=== PATIENT | female | born 1995 | race American Indian/Alaskan Native ===

== ENCOUNTER 2019-04-22 14:31 | Inpatient (IN) | payer OTHER ==
[2019-04-22] MEDS ORDERED: LACTATED RINGERS 1,000 ML ONE (15:14)
[2019-04-22] MEDS ORDERED: XYLOCAINE 2% INFILTRATI ONE (16:35)
[2019-04-22] MEDS ORDERED: BRETHINE SUB-Q PRN (16:35)
[2019-04-22] MEDS ORDERED: TYLENOL PO ONE (16:39)
--- NOTE | 2019-04-22 16:50 | History and Physical Report ---
History of Present Illness Date of examination: 04/22/19 Date of admission: 04/22/2019 Chief complaint: Contractions History of present illness: 23 year old female at 39 weeks, 4 days gestation presents to labor and delivery complaining of contractions since 09:30 today. Patient denies vaginal bleeding or leaking of fluid. Patient reports fetus is moving actively. Patient received care at [facility] and was able to look up records although hard copy is not available. LMP 07/19/2018. EDC 04/25/19 (based on LMP and confirmed by 12 week US). significant for the following: Multiple sclerosis (co-managed with [facility] and neuro), transfer-in to from Dr. Monteiro. labs are as follows: A-, antibody screen negative, rubella immune, RPR nonreactive, hepatitis B surface antigen negative, HIV negative, quad screen negative, chlamydia negative, gonorrhea negative, GBS negative, hemoglobin electrophoresis normal, unable to access 1 hour sugar test result at this time. Patient reports a latex allergy. Past History Past Medical History: other (multiple scerosis) Past Surgical History: no surgical history [facility] History: denies: abnormal PAP smear, chlamydia, gonorrhea, hepatitis B, hepatitis C, herpes, HIV, syphilis, trichomonas Social history: single, lives with family, full code. denies: smoking, alcohol abuse, prescription drug abuse, IV drug use - Obstetrical History Expected Date of Delivery: 04/25/19 Actual Gestation: 39 Week(s) 4 Day(s) : 1 Hx # Term Pregnancies: 0 Number of Pregnancies: 0 Spontaneous Abortions: 1 Induced : 0 Number of Living Children: 0 Medications and Allergies Allergies Allergy/AdvReac Type Severity Reaction Status Date / Time No Known Allergies Allergy Unverified 04/22/19 14:46 Active Meds: Active Medications Ephedrine Sulfate (Ephedrine Sulfate) 10 mg IV Q2M PRN PRN Reason: Hypotension Oxytocin/Sodium Chloride (Pitocin/Ns 20 Unit/1000ml Drip) 20 units in 1,000 mls @ 125 mls/hr IV DIRECT BASSAM Lactated Ringer's (Lactated Ringers) 1,000 mls @ 125 mls/hr IV DIRECT BASSAM Terbutaline Sulfate (Brethine) 0.25 mg SUB-Q ONCE PRN PRN Reason: Hyperstimulation/Hypertonicity Review of Systems All systems: negative (contractions) - Vital Signs Vital signs: Vital Signs Pulse BP 75 117/57 04/22/19 14:45 04/22/19 14:45 Temp Pulse Resp BP Pulse Ox 99.0 F 75 117/57 04/22/19 16:36 04/22/19 14:45 04/22/19 14:45 - Physical Exam Cardiovascular: Regular rate, Normal S1, Normal S2 Lungs: Positive: Clear to auscultation Abdomen: Positive: normal appearance, soft. Negative: distention, tenderness, guarding, rigidity Genitourinary (Female): Positive: normal external genitalia, normal perenium. Negative: perineal/vulvar lesions Vagina: Positive: normal moisture Uterus: Positive: enlarged (size appropriate for dates) Anus/Rectum: Positive: normal perianal skin Extremities: Positive: normal. Negative: tenderness, edema - Obstetrical FHR: category 2 FHR comments: 1 variable FHR deceleration with gradual return to baseline, mild tachycardia Cervical Dilatation: 2 Cervical Effacement Percentage: 95 station: 0 Uterine Contraction Pattern: Regular Uterine Contraction Intensity: Moderate Results All other labs normal. Assessment and Plan A: at 39 weeks, 4 days gestation. Early labor. Category 2 heart rate tracing (variable deceleration and mild tachycardia). GBS negative. Multiple Sclerosis. P: Admit. Continuous EFM. PO Tylenol. IV hydration. Oxygen per face mask. Lateral positioning. Consulted with Dr. Richter re: heart rate tracing and interventions taken. Asked Dr. Richter to come in to expedite delivery due to heart rate tracing (category 2, tachycardia and variable FHR deceleration). C/S orders put in the event tachycardia does not resolve.
[2019-04-22] MEDS ORDERED: PITOCin/NS 20 UNIT/1000ML DRIP 20 UNITS/1,000 ML BAG IV SCH ×2 (17:00→18:00)
[2019-04-22] MEDS ORDERED: LACTATED RINGERS 1,000 ML IV ONE (17:00)
[2019-04-22] MEDS ORDERED: LACTATED RINGERS 1,000 ML IV SCH ×2 (17:00→18:00)
[2019-04-22 17:25] LABS: Hematocrit 31.6 % (30.3-42.9); Mean Corpuscular HGB Conc 35 % (30-34); Mean Corpuscular Volume 93 fl (79-97); Platelet Count 197 K/mm3 (140-440); Red Cell Distribution Width 15.2 % (13.2-15.2)
[2019-04-22] MEDS ORDERED: GENTAMICIN 100 MG in NACL 0.9% 100 ML IV SCH (17:30)
--- NOTE | 2019-04-22 17:32 | Anesthesia Consultation ---
Anesthesia Consult and Med Hx Date of service: 04/22/19 - Airway Anesthetic Teeth Evaluation: Good ROM Head & Neck: Adequate Mental/Hyoid Distance: Adequate Mallampati Class: Class II Intubation Access Assessment: Probably Good - Pulmonary Exam CTA: Yes - Cardiac Exam Cardiac Exam: RRR - Pre-Operative Health Status ASA Pre-Surgery Classification: ASA2 Proposed Anesthetic Plan: Spinal - Pulmonary Hx Smoking: No Hx Asthma: No Hx Respiratory Symptoms: No SOB: No COPD: No Home Oxygen Therapy: No Hx Pneumonia: No Hx Sleep Apnea: No - Cardiovascular System Hx Hypertension: No Hx Coronary Artery Disease: No Hx Heart Attack/AMI: No Hx Angina: No Hx Percutaneous Transluminal Coronary Angioplasty (PTCA): No Hx Cardia Arrhythmia: No Hx Pacemaker: No Hx Internal Defibrillator: No Hx Valvular Heart Disease: No Hx Heart Murmur: No Hx Peripheral Vascular Disease: No - Central Nervous System Hx Neuromuscular Disorder: Yes (Multiple Sclerosis) Hx Seizures: No CVA: No Hx Back Pain: No Hx Psychiatric Problems: No - Gastrointestinal Hx Ulcer: No Hx Gastroesophageal Reflux Disease: Yes - Endocrine Hx Renal Disease: No Hx End Stage Renal Disease: No Hx Cirrhosis: No Hx Liver Disease: No Hx Insulin Dependent Diabetes: No Hx Non-Insulin Dependent Diabetes: No Hx Thyroid Disease: No Hx Hypothyroidism: No Hx Hyperthyroidism: No - Hematic Hx Anemia: No Hx Sickle Cell Disease: No - Other Systems Hx Alcohol Use: No Hx Substance Use: No Hx Cancer: No Hx Obesity: No
--- NOTE | 2019-04-22 17:33 | Anesthesia Day of Surgery ---
Anesthesia Day of Surgery - Day of Surgery Patient Examined: Yes Patient H&P Reviewed: Yes Patient is NPO: Yes Beta Blockers: No Cardiac Clearance: No Pulmonary Clearance: No Jacek's Test: N/A
--- NOTE | 2019-04-22 17:47 | Progress Note ---
Assessment and Plan heart tracing is category 2. Patient is not yet in labor and if this was to happen with the aim for a vaginal delivery, the finale is still 14-18 hours away. For not being certain that the fetus can withstand the stresses of labor, the decision was made to forego a trial of labor and proceed with delivery. This was explained to the patient who was fully understanding of the reasons. She asked a lot of questions all of which were answered and she gave her consent to proceed to delivery. Subjective - Subjective Date of service: 04/22/19 Principal diagnosis: Interval history: 23 year old female at 39 weeks, 4 days gestation presents to labor and delivery complaining of contractions since 09:30 today. Patient denies vaginal bleeding or leaking of fluid. Patient reports fetus is moving actively. Since patient's admission there has been a persistent tachycardia with decelerations. Contractions have been irregular. Cervical examination was 2 cm dilatation, 90% effacement with head at 0 station. Patient reports: movement normal, contractions, no vaginal bleeding Objective - Vital Signs Vital Signs: Vital Signs - 12hr 04/22/19 04/22/19 04/22/19 14:45 16:36 17:30 Temperature 99.0 F Pulse Rate 75 84 Blood Pressure 117/57 123/74 04/22/19 17:46 Temperature 98.7 F Pulse Rate Blood Pressure - Exam Breasts: deferred Abdomen: Present: normal appearance, distention FHR: category 2 Uterine Contraction Pattern: Irregular Uterine Contraction Intensity: Mild Extremities: normal - Labs Labs: Abnormal Labs 04/22/19 17:10 RBC 3.40 L MCHC 35 H Laboratory Results - last 24 hr 04/22/19 17:10 WBC 8.1 RBC 3.40 L Hgb 11.0 Hct 31.6 MCV 93 MCH 32 MCHC 35 H RDW 15.2 Plt Count 197
[2019-04-22] MEDS ORDERED: SUBLIMAZE ONE (17:52)
[2019-04-22] MEDS ORDERED: REGLAN IV ONE (18:00)
[2019-04-22] MEDS ORDERED: GENTAMICIN/NS 100 MG/100 ML 100 MG/100 ML BAG IV SCH (18:00)
[2019-04-22] MEDS ORDERED: BICITRA PO ONE (18:00)
[2019-04-22] MEDS ORDERED: ANCEF/STERILE WATER 2 GM/20 ML 2 GM/20 ML SYRINGE IV NR (18:00)
[2019-04-22] MEDS ORDERED: PEPCID IV ONE (18:00)
[2019-04-22] MEDS ORDERED: AMPICILLIN/NS 2 GM/100 ML 2 GM/100 ML BAG IV SCH (18:00)
[2019-04-22] MEDS ORDERED: WATER FOR IRRIG STERILE IR ONE (18:10)
[2019-04-22] MEDS ORDERED: NACL 0.9% IR ONE (18:10)
[2019-04-22] MEDS ORDERED: TORADOL ONE (18:38)
[2019-04-22] MEDS ORDERED: NEO SYNEPHRINE/NS Syringe(OR USE) IV ONE (18:38)
[2019-04-22 18:43] LABS: Alanine Aminotransferase 10 units/L (7-56); Albumin 3.1 g/dL (3.9-5); BUN/Creatinine Ratio 23; Blood Urea Nitrogen 9 mg/dL (7-17); Calcium 8.8 mg/dL (8.4-10.2); Hemolysis Index 11
[2019-04-22] MEDS ORDERED: VERSED ONE ×2 (18:57→19:19)
[2019-04-22] MEDS ORDERED: ZOFRAN IV PRN ×2 (19:25→19:37)
[2019-04-22] MEDS ORDERED: DILAUDID ONE (19:25)
[2019-04-22] MEDS ORDERED: LANSINOH TP PRN (19:25)
[2019-04-22] MEDS ORDERED: MORPHINE IV PRN (19:25)
[2019-04-22] MEDS ORDERED: TUCKS PAD TP PRN (19:25)
[2019-04-22] MEDS ORDERED: NARCAN 0.4 MG/1 ML IV PRN ×2 (19:25→19:37)
[2019-04-22] MEDS ORDERED: PHENERGAN PR PRN (19:37)
[2019-04-22] MEDS ORDERED: PHENERGAN PO PRN (19:37)
--- NOTE | 2019-04-22 19:40 | Post Anesthesia Evaluation ---
- Post Anesthesia Evaluation Patient Participated: Yes Airway Patent: Yes Stable Respiratory Function: Yes Nausea/Vomiting: No Temp > 96.8F: Yes Pain Manageable: Yes Adequeate Hydration: Yes Anesthesia Complications: No Block Receding Appropriately: Yes Patient on Ventilator: No
--- NOTE | 2019-04-22 19:53 | Operative Report ---
Operative Report Operative Report: Date of surgery: 04/22/2019 Admitting diagnosis: Term at 39 weeks and 4 days. Preoperative diagnosis: tachycardia. Patient not in labor. Procedures: Low segment transverse section. Surgeon: C.C.MD Rober Anesthesiologist: Kimberlyn Bianchi CRNA Estimated blood loss: 500 mL Complications: None. Findings: There was a live baby girl in cephalic presentation within the false maternal pelvis. Both ovaries and fallopian tubes as well as the uterus were all grossly normal. There was no discernible adhesions within the pelvis. All bowels and greater omentum seen through the Pfannenstiel incision with a grossly normal. The amniotic fluid was clear. Procedure in details: The patient was taken to the operating room and given spinal block. She arrived in the operating room with an indwelling Rhodes catheter. She was placed in the straight supine position with a slight left lateral tilt and prepped in the abdomen. The drapes were placed. A timeout was done. With the go ahead from the facilitator, the operation begun with a Pfannenstiel incision. This was carried across the subcutaneous layer to the fascia which was divided transversely. The fascial incision was widened with a pair of Mayos scissors. The recti abdominis muscle straps were stripped from the fascia using a combination of blunt and sharp dissections. The muscles were in the midline to gain access to the anterior parietal peritoneum. After palpating a tented flap of the anterior peritoneum to exclude any underlying viscera, this structure was divided with the Metzenbaums scissors. The laparotomy was widened by stretching. The bladder blade was applied. The uterovesical peritoneal flap was divided transversely over the lower uterine segment allowing the bladder to be displaced caudally. The uterine incision was placed transversely in the lower segment down to the decidual layer. The cavity of the uterus was entered by poking through with the index finger. The amniotic sac was ruptured with clear fluid. The head of the infant was extracted from the false pelvis without difficulty and delivered through the incision using fundal pressure. The airways were bulb suctioned beginning with the mouth. The rest of the baby was delivered by continuing fundal pressure combined with gentle traction on the mandible so the baby. The umbilical cord was divided after double clamping. Cord blood sample was obtained for routine analysis. The placenta was manually removed from the uterine cavity. The cavity of the uterus was explored and was empty of any placental remnants. The uterine incision was closed in 2 layers with 0 Vicryl. Hemostasis was excellent along the incisional line. Blood and clots were cleared from the peritoneal cavity. The uterine incisional line was again checked for hemostasis and this remained hemostatic. The anterior parietal peritoneum was then repaired with 0 Vicryl. The fascia was repaired with 0 Vicryl. Subcutaneous layer was buzzed with the Bovie at several points to achieve hemostasis. Skin was closed subcuticularly with 4-0 Vicryl on a Pete needle. There were no complications. The estimated blood loss was 500 mL. All sponges and instruments were accounted for. The patient tolerated the procedure very well and was transferred in very good condition to the recovery room.
[2019-04-22] MEDS ORDERED: SODIUM CHLORIDE FLUSH SYRINGE 10 ML IV NR ×2 (20:00)
[2019-04-22] MEDS: DILAUDID IV PRN ×2 (20:06→20:36)
[2019-04-23] MEDS ORDERED: D5LR 1,000 ML IV SCH (00:01)
[2019-04-23] MEDS: TORADOL IV PRN ×3 (00:22→15:37)
[2019-04-23 01:12] LABS: Bilirubin,Urine NEG (Negative); Blood,Urine SM (Negative); Color,Urine Yellow (Yellow); Mucus,Urine 1+ /HPF; Urobilinogen,Urine < 2.0 mg/dL (<2.0)
[2019-04-23 01:19] LABS: Cannabinoid Screen,Urine PRESUMPTIVE NEGATIVE; Cocaine Screen,Urine PRESUMPTIVE NEGATIVE; Methadone Screen,Urine PRESUMPTIVE NEGATIVE
[2019-04-23 01:56] LABS: Amphetamine Screen,Urine PRESUMPTIVE POSITIVE; Benzodiazepines Screen,Urine PRESUMPTIVE POSITIVE; Opiate Screen,Urine PRESUMPTIVE POSITIVE
[2019-04-23] MEDS: ANCEF/NS 1 GM/50 ML 1 GM/50 ML BAG IV SCH ×2 (02:05→08:33)
[2019-04-23 08:17] LABS: Hematocrit 29.5 % (30.3-42.9); Hemoglobin 10.3 gm/dl (10.1-14.3)
--- NOTE | 2019-04-23 09:48 | Progress Note ---
Assessment and Plan - Patient Problems (1) S/P section Current Visit: Yes Status: Acute Plan to address problem: Continue routine PP orders Anticipate d/c home in 24-48 hrs (2) Rh negative status during Current Visit: Yes Status: Acute Plan to address problem: Administer Rhogam per hospital policy (3) Anemia Current Visit: Yes Status: Acute Qualifiers: Anemia type: other cause Other causes of anemia: acute posthemorrhagic Qualified Code(s): D62 - Acute posthemorrhagic anemia Plan to address problem: Asymptomatic Increase iron rich foods into daily diet Subjective - Subjective Date of service: 04/23/19 Principal diagnosis: Interval history: See admission H & P, OB operative note Patient reports: appetite normal (remains on clear liquids), voiding normally, pain well controlled (with ), ambulating normally, no flatus, no bowel movement : doing well, other () Objective - Vital Signs Latest vital signs: Vital Signs Temp Pulse Resp BP BP Pulse Ox 04/23/19 07:16 98.3 F 78 18 106/62 04/23/19 03:12 98.5 F 78 18 103/56 04/22/19 23:41 98.2 F 74 16 116/66 96 04/22/19 21:00 98.8 F 82 16 118/72 100 04/22/19 20:30 98.0 F 76 18 113/70 98 04/22/19 20:15 85 16 113/70 98 04/22/19 20:00 78 12 113/60 100 04/22/19 19:45 79 15 145/86 100 04/22/19 19:40 70 19 131/77 100 04/22/19 19:32 97.8 F 78 16 130/76 99 04/22/19 17:46 98.7 F 04/22/19 17:30 84 123/74 04/22/19 16:36 99.0 F 04/22/19 14:45 75 117/57 Intake and Output 04/22/19 04/23/19 04/23/19 23:59 07:59 15:59 Intake Total 1700 950 Output Total 780 800 Balance 920 150 Intake: IV 1700 50 ANCEF/NS 1 GM/50 ML 1 gm 50 In 50 ml @ 100 mls/hr IV Q8H [facility] Rx#:[id number] Oral 480 Intake, Free Water 420 Output: Urine 780 800 Indwelling Catheter 800 Uretheral (Rhodes) 265 Other: Total, Intake Amount 480 Total, Output Amount 800 Estimated Blood Loss 500 - Exam Breasts: Present: normal Cardiovascular: Present: Regular rate Lungs: Present: Normal air movement Abdomen: Present: soft, tenderness Uterus: Present: firm, fundal height at umbilicus Extremities: Present: normal Deep Tendon Reflex Grade: Normal +2 Incision: Present: dressed - Labs Labs: Abnormal lab results 04/22/19 04/22/19 04/22/19 Range/Units 17:10 17:43 17:43 RBC 3.40 L (3.65-5.03) M/mm3 Hct (30.3-42.9) % MCHC 35 H (30-34) % Fibrinogen 481 H (211-480) mg/dl Sodium 136 L (137-145) mmol/L Creatinine 0.4 L (0.7-1.2) mg/dL Alkaline Phosphatase 169 H (35-129) units/L Albumin 3.1 L (3.9-5) g/dL Ur Specific [place] (1.003-1.030) 04/23/19 04/23/19 Range/Units 00:05 07:51 RBC (3.65-5.03) M/mm3 Hct 29.5 L (30.3-42.9) % MCHC (30-34) % Fibrinogen (211-480) mg/dl Sodium (137-145) mmol/L Creatinine (0.7-1.2) mg/dL Alkaline Phosphatase (35-129) units/L Albumin (3.9-5) g/dL Ur Specific [place] 1.035 H (1.003-1.030)
[2019-04-23] MEDS: PRENATAL VITAMIN PO SCH (10:09)
[2019-04-23] MEDS: FEOSOL PO SCH (10:09)
[2019-04-23] MEDS: NORCO 5/325 PO PRN (12:26)
[2019-04-24] MEDS: NORCO 5/325 PO PRN ×3 (00:20→12:27)
--- NOTE | 2019-04-24 09:56 | Progress Note ---
Assessment and Plan - Patient Problems (1) S/P primary low transverse Current Visit: Yes Status: Acute Plan to address problem: POD 2 - stable Continue routine postop orders Ambulation encouraged, as tolerated Discharge to home 04/25/19 Follow-up at [facility] as needed or in 1 week for incision check (2) Anemia due to blood loss, acute Current Visit: Yes Status: Acute Plan to address problem: Asymptomatic Continue iron therapy (3) Rh negative status during Current Visit: Yes Status: Acute Qualifiers: Trimester: third trimester Qualified Code(s): O26.893 - Other specified related conditions, third trimester; Z67.91 - Unspecified blood type, Rh negative Plan to address problem: Antibody screen negative RhoGam workup ordered Patient declined RhoGam stating "I declined it when i was 28 weeks and i am declining it again." I explained in detail potential risks to subsequent pregnancies and she stated " I will deal with it when it happens." Subjective - Subjective Date of service: 04/24/19 Principal diagnosis: POD #2; s/p Primary LTCS Interval history: see H&P, OB Progress Note, 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 Patient reports: appetite normal, voiding normally, pain well controlled, flatus , bowel movement, ambulating normally, no dizzy ambulation [place]: doing well, nursing well Objective - Vital Signs Latest vital signs: Vital Signs Temp Pulse Resp BP BP Pulse Ox 04/24/19 07:49 98.3 F 85 16 118/64 04/24/19 00:17 98.5 F 96 H 20 122/73 99 04/23/19 16:18 98.2 F 79 18 102/55 04/23/19 12:20 98.4 F 81 18 116/68 Intake and Output 04/23/19 04/24/19 04/24/19 23:59 07:59 15:59 Intake Total 720 Balance 720 Intake: Oral 720 Other: Total, Intake Amount 240 # Voids Void 1 1 - Exam Cardiovascular: Present: Regular rate Lungs: Present: Clear to auscultation, Normal air movement Abdomen: Present: normal appearance, soft Vulva: both: normal Uterus: Present: normal, firm, fundal height below umbilicus Extremities: Present: normal Incision: Present: normal, dry, intact, dressed Comments: small lochia
--- NOTE | 2019-04-24 10:04 | Discharge Summary ---
Providers - Providers Date of Admission: 04/22/19 14:32 Date of discharge: 04/25/19 Attending physician: NEVAEH ORSAS MD 04/24/19 07:16 Consult to Case Management [CONS] Routine Services Needed at Discharge: Other Notified:: case management Additional Physician Instructions: urine drug screen positive Primary care physician: NEVAEH ROSAS MD Hospitalization Reason for admission: active labor, IUP at term Delivery: Procedure: primary low transverse Episiotomy: none Laceration: none Incision: normal, dry, intact Other procedures: none complications: none Discharge diagnosis: IUP at term delivered baby: female Hospital course: Uncomplicated Condition at discharge: Stable Disposition: - TO HOME OR SELFCARE - Discharge Diagnoses (1) S/P primary low transverse Status: Acute (2) Anemia due to blood loss, acute Status: Acute Comment: Asymptomatic Continue iron therapy Encouraged iron-rich foods as well (3) Rh negative status during Status: Acute Qualifiers: Trimester: third trimester Qualified Code(s): O26.893 - Other specified related conditions, third trimester; Z67.91 - Unspecified blood type, Rh negative Comment: RhoGam workup ordered but declined by patient. Indication and risk discussed in detail. Plan - Discharge Medications Prescriptions: Ferrous Sulfate [Feosol 325 MG tab] 325 mg PO QDAY #30 tablet - Provider Discharge Summary Activity: routine, no sex for 6 weeks, no heavy lifting 4 weeks, no strenuous exercise Diet: routine Instructions: routine Additional instructions: [] Smoking cessation referral if applicable(refer to patient education folder for contact #) [] Refer to [facility] Booklet Call your doctor immediately for: * Fever > 100.5 * Heavy vaginal bleeding ( >1 pad per hour) * Severe persistent headache * Shortness of breath * Reddened, hot, painful area to leg or breast * Drainage or odor from incision. * Keep incision clean and dry at all times and follow doctor's instructions regarding bathing/showering - Follow up plan Follow up: NEVAEH ROSAS MD [Primary Care Provider] - 7 Days (Follow-up at [facility] as needed or in 1 week for incision check)
[2019-04-24] MEDS: PRENATAL VITAMIN PO SCH (10:34)
[2019-04-24] MEDS: FEOSOL PO SCH (10:34)
[2019-04-24] MEDS: IBUPROFEN PO SCH (19:09)
[2019-04-25] MEDS: IBUPROFEN PO SCH ×5 (00:30→20:35)
[2019-04-25] MEDS: PRENATAL VITAMIN PO SCH (10:14)
[2019-04-25] MEDS: FEOSOL PO SCH (10:14)
[2019-04-26] MEDS: IBUPROFEN PO SCH ×2 (00:04→06:49)
[2019-04-26] MEDS: PRENATAL VITAMIN PO SCH (12:14)
[2019-04-26] MEDS: FEOSOL PO SCH (12:14)
[2019-04-26 12:45] VITALS: BP 121/74
== END 2019-04-26 12:53 | disposition home or self-care (01) | DRG 765 ==
LOC: TRG 14:31 → LD 14:32 → TRG 14:32 → OB 21:44
PROVIDERS: ADMIT Obstetrics & Gynecology; ATTEND Obstetrics & Gynecology
PROC: 10D00Z1 Extraction of Products of Conception, Low, Open Approach (ICD-10-PCS; principal; 2019-04-22)
DX: O76 Abnormality in fetal heart rate and rhythm complicating labor and delivery (principal); D62 Acute posthemorrhagic anemia; O99.354 Diseases of the nervous system complicating childbirth; G35 Multiple sclerosis; O90.81 Anemia of the puerperium; O99.62 Diseases of the digestive system complicating childbirth; K21.9 Gastro-esophageal reflux disease without esophagitis; O26.893 Other specified pregnancy related conditions, third trimester; Z3A.39 39 weeks gestation of pregnancy; Z37.0 Single live birth; Z67.11 Type A blood, Rh negative
CPT/HCPCS: 36415; 80053; 80307; 81001; 85014; 85018; 85027; 85384; 85461; 86592; 86850; 86900; 86901; 88307; G0378; A6250; J0690; J1170; J1580; J1885; J2250; J2270; J2370; J2405; J2590; J2765; J3010; J7120; J7121